=== PATIENT | male | born 1945 | race Caucasian/White ===

== ENCOUNTER → 2016-08-27 | Outpatient (CLI) | payer MEDICARE | LOC: PCVCIMAG 10:49 | PROVIDERS: ATTEND Internal Medicine | DX: I10 Essential (primary) hypertension (principal); E78.5 Hyperlipidemia, unspecified; K21.9 Gastro-esophageal reflux disease without esophagitis | CPT/HCPCS: 93325; 93351 ==

== ENCOUNTER → 2017-04-29 | Outpatient (CLI) | payer MEDICARE ==
--- NOTE | 2017-04-29 10:51 | PCVCIMAG ---
APPROVED REPORT Study performed: 04/29/2017 09:04:57 EXAM: Comprehensive 2D, Doppler, and color-flow Echocardiogram Patient Location: Echo lab Status: routine BSA: 2.02 HR: 81 bpmBP: 130/80 mmHg Rhythm: NSR Other Information Study Quality: Adequate Indications Murmur. Aortic Stenosis 2D Dimensions LVEF(%): 65.60 (>50%) IVSd: 11.08 (7-11mm)LVOT Diam: 19.82 (18-24mm) LVDd: 39.94 mm PWd: 11.62 (7-11mm)Ascending Ao: 33.34 (22-36mm) LVDs: 25.74 (25-40mm) Left Atrium: 48.35 (27-40mm) Aortic Root: 33.82 mm Patton's LVEF: 65.60 % Volumes Left Atrial Volume (Systole) Single Plane 4CH: 51.02 mLSingle Plane 2CH: 49.11 mL LA ESV Index: 27.00 mL/m2 Aortic Valve AoV Peak Be.: 3.68 m/s AO Peak Gr.: 54.03 mmHgLVOT Max P.61 mmHg AO Mean Gr.: 28.46 mmHgLVOT Mean P.38 mmHg AO V2 Mean: 2.55 m/sLVOT Max V: 1.18 m/s AO V2 VTI: 72.83 cmLVOT Mean V: 0.69 m/s SEFERINO (VTI): 0.97 [id number] V1 VTI: 23.01 cm SEFERINO Vmax: 0.99 cm2 SV (LVOT): 70.94 mL Mitral Valve E/A Ratio: 0.8 MV Decel. Time: 235.52 ms MV E Max Be.: 0.74 m/s MV A Be.: 0.89 m/s IVRT: 107.27 ms TDI E/Lateral E': 12.33E/Medial E': 10.57 Medial E' Be.: 0.07 m/s Lateral E' Be.: 0.06 m/s Pulmonary Valve PV Peak Gr.: 3.50 mmHg Pulmonary Vein P Vein S: 0.43 m/sP Vein A: 0.35 m/s P Vein D: 0.25 m/sP Vein A Dur.: 45.0 msec P Vein S/D Ratio: 1.72 Left Ventricle The left ventricle is normal size. There is normal LV segmental wall motion. There is normal left ventricular wall thickness. Left ventricular systolic function is normal. The left ventricular ejection fraction is within the normal range. LVEF is 55-60%. Grade I diastolic dysfunction Right Ventricle The right ventricle is normal size. The right ventricular systolic function is normal. Atria The left atrium size is normal. The right atrium size is normal. Aortic Valve Moderately calcified No aortic regurgitation is present. Aortic Valve Area is 1.0cm with a peak gradient of 54 mmHg and a mean gradient of 29mmHg. Mitral Valve The mitral valve is normal in structure. There is no mitral valve regurgitation noted. No evidence of mitral valve stenosis. Tricuspid Valve The tricuspid valve is normal in structure. There is no tricuspid valve regurgitation noted. Pulmonic Valve The pulmonary valve is normal in structure. There is no pulmonic valvular regurgitation. Great Vessels The aortic root is normal in size. IVC is normal in size and collapses with >50% inspiration Pericardium There is no pericardial effusion. <Conclusion> Left ventricular systolic function is normal. There is normal LV segmental wall motion. LVEF is 55-60%. Grade I diastolic dysfunction Moderately calcified. Moderate stenosis Aortic Valve Area is 1.0cm with a peak gradient of 54 mmHg and a mean gradient of 29mmHg. The mitral valve is normal in structure. No mitral valve regurgitation noted. Pulmonary artery pressure could not be reliably ascertained There is no pericardial effusion.
== END | disposition home or self-care (01) ==
LOC: PCVCIMAG 08:56
PROVIDERS: ATTEND Internal Medicine
DX: I35.0 Nonrheumatic aortic (valve) stenosis (principal); I10 Essential (primary) hypertension; E78.5 Hyperlipidemia, unspecified; K21.9 Gastro-esophageal reflux disease without esophagitis; Z98.52 Vasectomy status; Z79.82 Long term (current) use of aspirin; Z87.891 Personal history of nicotine dependence; Z88.0 Allergy status to penicillin; Z88.1 Allergy status to other antibiotic agents
CPT/HCPCS: 80061; 93005; 93306; G0463

== ENCOUNTER → 2018-04-28 | Outpatient (CLI) | payer MEDICARE ==
--- NOTE | 2018-04-28 10:55 | PCVCIMAG ---
APPROVED REPORT Study performed: 04/28/2018 08:56:04 EXAM: Comprehensive 2D, Doppler, and color-flow Echocardiogram Patient Location: Echo lab Room #: 2Status: routine BSA: 2.04 HR: 78 bpmBP: 144/78 mmHg Rhythm: NSR Other Information Study Quality: Adequate Risk Factors: Cardiac Risk Factors: HTN, Hyperlipidemia Indications Aortic Valve Disease Hypertension/HDD 2D Dimensions IVSd: 9.06 (7-11mm)LVOT Diam: 19.85 (18-24mm) LVDd: 42.30 mm PWd: 8.62 (7-11mm) LVDs: 22.32 (25-40mm) Left Atrium: 40.67 (27-40mm) Aortic Root: 27.27 mm LV Single Plane 4CH: 64.26 % LV Single Plane 2CH: 54.82 %Patton's LVEF: 59.54 % Biplane EF: 60.4 % Volumes Left Atrial Volume (Systole) Single Plane 4CH: 75.00 mLSingle Plane 2CH: 50.29 mL Biplane LA Volume: 83.00 mLLA ESV Index: 31.00 mL/m2 Aortic Valve AoV Peak Be.: 3.42 m/s AO Peak Gr.: 47.19 mmHgLVOT Max P.43 mmHg AO Mean Gr.: 27.68 mmHgLVOT Mean P.73 mmHg AO V2 Mean: 2.52 m/sLVOT Max V: 1.14 m/s AO V2 VTI: 71.47 cmLVOT Mean V: 0.77 m/s SEFERINO (VTI): 1.05 [id number] V1 VTI: 24.21 cm SEFERINO Vmax: 1.04 cm2 SV (LVOT): 74.91 mL Mitral Valve E/A Ratio: 0.8 MV Decel. Time: 289.50 ms MV E Max Be.: 0.56 m/s MV A Be.: 0.72 m/s IVRT: 128.03 ms TDI E/Lateral E': 14.00E/Medial E': 14.00 Medial E' Be.: 0.04 m/s Lateral E' Be.: 0.04 m/s Pulmonary Valve PV Peak Be.: 0.88 m/sPV Peak Gr.: 3.09 mmHg Pulmonary Vein P Vein S: 0.43 m/sP Vein A: 0.33 m/s P Vein D: 0.23 m/sP Vein A Dur.: 86.5 msec P Vein S/D Ratio: 1.87 Tricuspid Valve TR Peak Be.: 2.48 m/s TR Peak Gr.: 24.63 mmHg TV Vmax: 0.63 m/sPA Pressure: 32.00 mmHg Left Ventricle The left ventricle is normal size. There is normal LV segmental wall motion. Borderline concentric left ventricular hypertrophy. Left ventricular systolic function is normal. The left ventricular ejection fraction is within the normal range. LVEF is 55-60%. Grade I - abnormal relaxation pattern. Right Ventricle The right ventricle is normal size. The right ventricular systolic function is normal. Atria The left atrium size is normal. The right atrium size is normal. Aortic Valve Aortic valve is probably trileaflet, moderately calcified. No aortic regurgitation is present. Moderate aortic stenosis. Highest mean aortic valve gradient is 28 mmHg_mmHg. Peak aortic valve gradient is 47 mmHg_mmHg, mean gradient 28mm Hg. Calculated SEFERINO by the continuity equation is 1.0 cm2. Mitral Valve The mitral valve is normal in structure. There is no mitral valve regurgitation noted. No evidence of mitral valve stenosis. Tricuspid Valve The tricuspid valve is normal in structure. Mild tricuspid regurgitation with a PA pressure of 32 mmHg. Pulmonic Valve The pulmonary valve is normal in structure. There is no pulmonic valvular regurgitation. Great Vessels The aortic root is normal in size. Ascending aorta is not well visualized. IVC is normal in size and collapses with >50% inspiration Pericardium There is no pericardial effusion. There is no pleural effusion. <Conclusion> Left ventricular systolic function is normal. There is normal LV segmental wall motion. LVEF is 55-60%. Mild diastolic dysfunction Aortic valve is probably trileaflet, moderately calcified. Moderate aortic stenosis. Peak aortic valve gradient 47 mmHg_mmHg, mean gradient 28mm Hg. Calculated SEFERINO by the continuity equation is 1.0 cm2. The mitral valve is normal in structure. No mitral valve regurgitation Mild tricuspid regurgitation with a pulmonary artery pressure of 32 mmHg. There is no pericardial effusion.
== END | disposition home or self-care (01) ==
LOC: PCVCIMAG 12:57
PROVIDERS: ATTEND Internal Medicine
DX: I08.2 Rheumatic disorders of both aortic and tricuspid valves (principal); I10 Essential (primary) hypertension; E78.5 Hyperlipidemia, unspecified; Z79.82 Long term (current) use of aspirin
CPT/HCPCS: 80061; 93005; 93306; G0463

== ENCOUNTER → 2019-05-04 | Outpatient (CLI) | payer MEDICARE ==
--- NOTE | 2019-05-04 11:39 | PCVCIMAG ---
APPROVED REPORT Study performed: 05/04/2019 09:04:21 EXAM: Comprehensive 2D, Doppler, and color-flow Echocardiogram Patient Location: Echo lab Status: routine BSA: 2.01 HR: 84 bpmBP: 122/84 mmHg Rhythm: NSR Other Information Study Quality: Good Risk Factors: Cardiac Risk Factors: HTN, Hyperlipidemia Indications Aortic Stenosis 2D Dimensions IVSd: 14.94 (7-11mm)LVOT Diam: 19.80 (18-24mm) LVDd: 26.85 mm PWd: 14.34 (7-11mm)Ascending Ao: 33.72 (22-36mm) LVDs: 21.21 (25-40mm) Left Atrium: 51.15 (27-40mm) Aortic Root: 31.38 mm LV Single Plane 4CH: 59.26 % LV Single Plane 2CH: 52.18 % Biplane EF: 55.0 % Volumes Left Atrial Volume (Systole) Single Plane 4CH: 77.17 mLSingle Plane 2CH: 57.35 mL LA ESV Index: 34.00 mL/m2 Aortic Valve AoV Peak Be.: 3.30 m/s AO Peak Gr.: 43.50 mmHgLVOT Max P.85 mmHg AO Mean Gr.: 27.78 mmHgLVOT Mean P.62 mmHg AO V2 Mean: 2.56 m/sLVOT Max V: 1.10 m/s AO V2 VTI: 70.78 cmLVOT Mean V: 0.76 m/s SEFERINO (VTI): 1.10 [id number] V1 VTI: 25.39 cm SEFERINO Vmax: 1.03 cm2 SV (LVOT): 78.14 mL Mitral Valve E/A Ratio: 0.8 MV Decel. Time: 165.04 ms MV E Max Be.: 0.82 m/s MV A Be.: 0.97 m/s IVRT: 114.19 ms TDI E/Lateral E': 16.40E/Medial E': 13.67 Medial E' Be.: 0.06 m/s Lateral E' Be.: 0.05 m/s Pulmonary Valve PV Peak Gr.: 2.78 mmHg Pulmonary Vein P Vein S: 0.42 m/sP Vein A: 0.42 m/s P Vein D: 0.22 m/sP Vein A Dur.: 131.5 msec P Vein S/D Ratio: 1.91 Tricuspid Valve TR Peak Be.: 2.39 m/s TR Peak Gr.: 22.77 mmHg Left Ventricle The left ventricle is normal size. There is normal LV segmental wall motion. Mild concentric left ventricular hypertrophy. Left ventricular systolic function is normal. The left ventricular ejection fraction is within the normal range. LVEF is 60-65%. Mild diastolic dysfunction is present (impaired relaxation pattern). Right Ventricle The right ventricle is normal size. The right ventricular systolic function is normal. Atria The left atrium size is normal. The right atrium size is normal. Aortic Valve Aortic valve is probably trileaflet, moderately calcified. Trace aortic regurgitation. Peak aortic valve gradient is 44mmHg. Mean gradient is 28mmHg. Calculated SEFERINO is 1.0cm2. Mitral Valve The mitral valve is normal in structure. There is no mitral valve regurgitation noted. No evidence of mitral valve stenosis. Tricuspid Valve The tricuspid valve is normal in structure. Trace tricuspid regurgitation. Pulmonary artery pressure is 30mmHg. Pulmonic Valve The pulmonary valve is normal in structure. There is no pulmonic valvular regurgitation. Great Vessels The aortic root is normal in size. IVC is normal in size and collapses >50% with inspiration. Pericardium There is no pericardial effusion. <Conclusion> Left ventricular systolic function is normal. There is normal LV segmental wall motion. LVEF is 60-65%. Mild diastolic dysfunction Aortic valve is probably trileaflet, moderately calcified and moderately stenotic. Peak aortic valve gradient is 44mmHg. Mean gradient is 28mmHg. Calculated SEFERINO is 1.0cm2. The mitral valve is normal in structure. No mitral valve regurgitation Trace tricuspid regurgitation. Pulmonary artery pressure of 30mmHg. There is no pericardial effusion.
== END | disposition home or self-care (01) ==
LOC: PCVCIMAG 08:47
PROVIDERS: ATTEND Internal Medicine
DX: I35.0 Nonrheumatic aortic (valve) stenosis (principal); E78.5 Hyperlipidemia, unspecified; K21.9 Gastro-esophageal reflux disease without esophagitis; I11.0 Hypertensive heart disease with heart failure; I50.9 Heart failure, unspecified; Z79.82 Long term (current) use of aspirin; Z87.891 Personal history of nicotine dependence; Z88.1 Allergy status to other antibiotic agents
CPT/HCPCS: 36415; 80061; 93005; 93306; G0463